=== PATIENT | female | born 1990 | race Asian ===

== ENCOUNTER 2019-01-27 06:28 | Emergency (ER) | payer BC, OTHER ==
[~2019-01-27] VITALS: Ht 170.2 cm; Wt 74.5 kg
[~2019-01-27 06:28] MED LIST: Motrin
[2019-01-27] MEDS ORDERED: dexamethasone 4mg tablet PO ONE (06:50)
[2019-01-27] MEDS ORDERED: triamcinolone acetonide 40mg/ml inj IM ONE (06:50)
[2019-01-27] MEDS ORDERED: ipratropium/albuterol 3ml nebule NEB ONE (06:50)
[2019-01-27 07:37] VITALS: BP 124/81
== END 2019-01-27 07:42 | disposition home or self-care (01) ==
LOC: ER 06:29
DX: J45.901 Unspecified asthma with (acute) exacerbation (principal); F12.90 Cannabis use, unspecified, uncomplicated
CPT/HCPCS: 93005; 94640; 96372; 99283; J3301; 94760

== ENCOUNTER 2020-07-30 19:02 | Emergency (ER) | payer BC ==
[~2020-07-30] VITALS: Ht 170.2 cm; Wt 47.5 kg
[2020-07-30] MEDS ORDERED: albuterol 2.5 MG/3 ML nebule CONTNEB PRN (19:05)
[2020-07-30] MEDS ORDERED: methylPREDNISolone sod succ 125mg/2ml vial IV ONE (19:05)
[2020-07-30] MEDS ORDERED: magnesium 2GM in 50ml NS 50 ML IV ONE ×2 (19:05→20:40)
[2020-07-30] MEDS ORDERED: predniSONE 20 mg tablet PO ONE (19:20)
--- NOTE | 2020-07-30 19:31 | NUR ---
Cont breating tx initiated. RT at bedside.
[2020-07-30] MEDS ORDERED: ipratropium/albuterol 3ml nebule NEB ONE (20:40)
[2020-07-30 21:05] LABS: BASOPHILS % (AUTO) 0.4 % (0-1); EOSINOPHILS # (AUTO) 0.4 X10'3 (0-0.9); EOSINOPHILS % (AUTO) 4.8 % (0-6); HEMATOCRIT 44.2 % (35.0-45.0); HEMOGLOBIN 15.2 g/dl (12.0-16.0); LYMPHOCYTES # (AUTO) 1.2 X10'3 (1.1-4.8); LYMPHOCYTES % (AUTO) 12.7 % (21-51); MEAN CORPUSCULAR HEMOGLOBIN 32.4 PG (27.0-31.0); MEAN CORPUSCULAR HGB CONC 34.4 g/dL (33.0-36.5); MEAN PLATELET VOLUME 8.3 FL (7.4-10.4); MONOCYTES # (AUTO) 0.6 X10'3 (0-0.9); MONOCYTES % (AUTO) 6.6 % (2-12); NEUTROPHILS % (AUTO) 75.5 % (42-75); PLATELET COUNT 211 X10'3 (140-440); RED CELL DISTRIBUTION WIDTH 12.5 % (11.5-14.5); WHITE BLOOD COUNT 9.3 X10'3 (4.5-11.0)
[2020-07-30 21:15] LABS: ALANINE AMINOTRANSFERASE 17 U/L (12-78); ALBUMIN 4.7 G/DL (3.4-5.0); ALBUMIN/GLOBULIN RATIO 1.4 (1.1-1.5); ALKALINE PHOSPHATASE 73 IU/L (46-116); ANION GAP 12 (8-16); ASPARTATE AMINO TRANSFERASE 19 U/L (10-37); BILIRUBIN,TOTAL 0.7 MG/DL (0.1-1.0); BLOOD UREA NITROGEN 13 MG/DL (7-18); BUN/CREATININE RATIO 17.1 (6.6-38.0); CHLORIDE 103 MMOL/L (99-107); CREATININE 0.76 MG/DL (0.40-0.90); GLUCOSE 102 MG/DL (70-104); POTASSIUM 3.6 MMOL/L (3.5-5.1); SODIUM 139 MMOL/L (135-145); TOTAL PROTEIN 8.1 G/DL (6.4-8.2); eGFR > 90 ML/MIN
[2020-07-30 22:04] VITALS: BP 154/69
[2020-07-30] MEDS ORDERED: PRED50TA PO (23:18)
== END 2020-07-30 23:25 | disposition home or self-care (01) ==
LOC: ER 19:02
DX: J45.901 Unspecified asthma with (acute) exacerbation (principal); F12.10 Cannabis abuse, uncomplicated
CPT/HCPCS: 36415; 71045; 80053; 85025; 94640; 96365; 99285; J3475; J7512; 94760; A7015

== ENCOUNTER 2021-03-05 18:38 | Emergency (ER) | payer BC ==
[~2021-03-05] VITALS: Ht 170.2 cm; Wt 80.0 kg
[~2021-03-05 18:38] MED LIST changes: +PRED50TA PO
[2021-03-05] MEDS ORDERED: magnesium 2GM in 50ml NS 50 ML IV ONE (19:00)
[2021-03-05] MEDS ORDERED: predniSONE 20 mg tablet PO ONE ×3 (19:00→21:25)
[2021-03-05] MEDS: albuterol 2.5 MG/3 ML nebule CONTNEB PRN ×3 (19:08→21:54)
--- NOTE | 2021-03-05 20:23 | NUR ---
1 hour cont neb complete. prednisone on board Mag almost finished and patietn reports not improved and is still in tripod position. provider notified
--- NOTE | 2021-03-05 20:31 | NUR ---
verbal order for another 1 hour cont neb. paged RT. also eval for bipap
[2021-03-05 22:18] VITALS: BP 142/62
[2021-03-05] MEDS ORDERED: ALB0.5UD IH (22:49)
[2021-03-05] MEDS ORDERED: PRED20TA PO (22:49)
[2021-03-05] MEDS ORDERED: ALBU8HFA PO (22:49)
[2021-03-16] MEDS ORDERED: BECL7.3A INH (02:51)
[2021-03-16] MEDS ORDERED: PRED20TA PO (02:51)
== END 2021-03-05 22:55 | disposition home or self-care (01) ==
LOC: ER 18:40
DX: J45.901 Unspecified asthma with (acute) exacerbation (principal); F12.90 Cannabis use, unspecified, uncomplicated; Z79.899 Other long term (current) drug therapy
CPT/HCPCS: 71045; 94640; 94644; 96365; 96366; 99285; J3475; J7512; 94760; A7015

== ENCOUNTER 2021-10-27 14:04 | Inpatient (IN) | payer BC ==
[~2021-10-27] VITALS: Ht 170.2 cm; Wt 77.3 kg
[~2021-10-27 14:04] MED LIST changes: +BECL7.3A INH
[2021-10-27] MEDS ORDERED: ipratropium/albuterol 3ml nebule NEB ONE (14:10)
[2021-10-27] MEDS ORDERED: methylPREDNISolone sod succ 125mg/2ml vial IV ONE (14:25)
[2021-10-27] MEDS ORDERED: albuterol 2.5 MG/3 ML nebule CONTNEB PRN ×2 (14:25→17:40)
[2021-10-27] MEDS ORDERED: magnesium 2GM in 50ml NS 50 ML IV ONE (14:25)
[2021-10-27] MEDS ORDERED: epiNEPHrine 1 mg/ml inj IM STA (14:56)
[2021-10-27 14:57] LABS: BASOPHILS % (AUTO) 0.1 % (0-1); EOSINOPHILS % (AUTO) 0.2 % (0-6); HEMATOCRIT 45.7 % (35.0-45.0); HEMOGLOBIN 15.7 g/dl (12.0-16.0); LYMPHOCYTES # (AUTO) 0.5 X10'3 (1.1-4.8); LYMPHOCYTES % (AUTO) 4.1 % (21-51); MEAN CORPUSCULAR HGB CONC 34.3 g/dL (33.0-36.5); MEAN CORPUSCULAR VOLUME 90.3 FL (78-98); MONOCYTES # (AUTO) 0.4 X10'3 (0-0.9); MONOCYTES % (AUTO) 3.2 % (2-12); NEUTROPHILS # (AUTO) 11.2 X10'3 (1.8-7.7); NEUTROPHILS % (AUTO) 92.4 % (42-75); PLATELET COUNT 195 X10'3 (140-440); RED BLOOD COUNT 5.06 X10'6 (4.20-5.60); RED CELL DISTRIBUTION WIDTH 13.3 % (11.5-14.5); WHITE BLOOD COUNT 12.1 X10'3 (4.5-11.0)
[2021-10-27 15:06] LABS: ALANINE AMINOTRANSFERASE 17 U/L (12-78); ALBUMIN 4.8 G/DL (3.4-5.0); ALBUMIN/GLOBULIN RATIO 1.1 (1.1-1.5); ALKALINE PHOSPHATASE 74 IU/L (46-116); ANION GAP 11 (8-16); ASPARTATE AMINO TRANSFERASE 16 U/L (10-37); BILIRUBIN,TOTAL 0.7 MG/DL (0.1-1.0); BLOOD UREA NITROGEN 12 MG/DL (7-18); BUN/CREATININE RATIO 15.4 (6.6-38.0); CALCIUM 9.5 MG/DL (8.5-10.1); CHLORIDE 104 MMOL/L (99-107); CREATININE 0.78 MG/DL (0.40-0.90); GLUCOSE 149 MG/DL (70-104); MAGNESIUM 2.1 MG/DL (1.5-2.4); POTASSIUM 4.1 MMOL/L (3.5-5.1); SODIUM 139 MMOL/L (135-145); TOTAL CARBON DIOXIDE 23.8 MMOL/L (24-32); TOTAL PROTEIN 9.1 G/DL (6.4-8.2); eGFR 88 ML/MIN
[2021-10-27 17:34] LABS: ABG BASE EXCESS -0.6 mmol/L (-2.0-2.0); ABG HCO3 22.9 mmol/L (22.0-26.0); ABG OXYGEN SATURATION 91.2 % (94-97); ABG PCO2 (T) 34.7 mmHg (32.0-45.0); ABG PO2 (T) 58.8 mmHg (75.0-100.0); ALLEN'S TEST POSITIVE; FCOHb 0.6 % (0.0-3.9); FMetHb 0.3 % (0.0-1.5); FO2Hb 90.4 % (94-97); TOTAL HEMOGLOBIN 15.4 G/dl (12.0-16.0)
[2021-10-27] MEDS ORDERED: FLUT1BLS13 INH (17:43)
[2021-10-27] MEDS ORDERED: PRED10TA PO (17:43)
[2021-10-27] MEDS ORDERED: ALBU90AE2 INH (17:48)
--- NOTE | 2021-10-27 17:49 | NUR ---
Patient ambulating around the unit without difficulty. Fiance walking with her.
[2021-10-27] MEDS ORDERED: magnesium hydroxide 30ml (MOM) UD suspension PO PRN (19:20)
[2021-10-27] MEDS ORDERED: normal saline 1000ml 1,000 ML IV SCH (19:20)
[2021-10-27] MEDS ORDERED: acetaminophen 325mg tablet PO PRN ×2 (19:20)
[2021-10-27] MEDS ORDERED: POTASSIUM BICARB 20meq eff tab 20 MEQ TABLET.EFF PO PRN ×2 (19:20)
[2021-10-27] MEDS ORDERED: potassium CL 10mEq/100ml bag 100 ML IV PRN (19:20)
[2021-10-27] MEDS ORDERED: acetaminophen 650mg rectal suppository RC PRN (19:20)
[2021-10-27] MEDS ORDERED: levoFLOXACIN-Levaquin 750MG/D5 150 ML IV SCH (19:20)
[2021-10-27] MEDS ORDERED: morphine 2 MG/ML inj. syringe IV PRN ×2 (19:20)
[2021-10-27] MEDS ORDERED: albuterol 2.5 MG/3 ML nebule NEB PRN (19:20)
[2021-10-27] MEDS ORDERED: diphenhydrAMINE 25mg capsule PO PRN (19:20)
[2021-10-27] MEDS ORDERED: bisacodyl 10mg suppository rectal RC PRN (19:20)
[2021-10-27] MEDS ORDERED: HYDROcodone/acetaminophen 5mg/325mg tablet PO PRN (19:20)
[2021-10-27] MEDS ORDERED: HYDROcodone/acetaminophen 10/325mg tab PO PRN (19:20)
[2021-10-27] MEDS ORDERED: mag hydrox/Alum hydrox/simeth 30ml oral suspension PO PRN (19:20)
[2021-10-27] MEDS ORDERED: magnesium Cl slow-release 64mg tablet PO PRN (19:20)
[2021-10-27] MEDS ORDERED: magnesium 4gm in 100ml NS 100 ML IV PRN (19:20)
[2021-10-27] MEDS ORDERED: ondansetron/PF 4mg/2ml inj IV PRN (19:20)
[2021-10-27] MEDS ORDERED: ipratropium/albuterol 3ml nebule NEB PRN (19:20)
[2021-10-27] MEDS ORDERED: magnesium 2GM in 50ml NS 50 ML IV PRN (19:20)
[2021-10-27] MEDS ORDERED: K and/or MAG REPLACEMENT MC SCH (20:00)
[2021-10-27] MEDS ORDERED: methylPREDNISolone sod succ 125mg/2ml vial IV SCH (20:00)
[2021-10-27] MEDS ORDERED: docusate sod 100mg capsule PO SCH (20:00)
[2021-10-27 20:33] LABS: CLARITY,URINE CLEAR (Clear); COLOR,URINE YELLOW (Yellow); GLUCOSE, URINE NEGATIVE (Neg); KETONES,URINE 15 mg/dl (Neg); LEUKOCYTE ESTERASE ,URINE NEGATIVE (Neg); OCCULT BLOOD,URINE TRACE-INTACT (Neg); PROTEIN,URINE 100 mg/dl (Neg); UROBILINOGEN,URINE 0.2 E.U/dL (0.2-1.0)
[2021-10-27 20:38] LABS: NITRITES, URINE NEGATIVE (Neg); UA COLLECTION TYPE CLN CATCH MIDSTREAM
--- NOTE | 2021-10-27 20:38 | NUR ---
contacted hospitalist Clair in regards to patients concerns over admission. patient states she was admitted prior to re-evaluation by ED physician or evaluation by hospitalist. patient requested to speak with hospitalist. Patient was notified that hospitalist was unable discharge patient this evening and would come to speak with patient later on this evening. patient notified that she could sign out against medical advice if necessary. explained treatment plan and orders that were placed in EHR for patient. patient agrees with treatment plan at this time and will speak with night hospitalist when she is available later today.
[2021-10-27 20:39] LABS: WBC,URINE NONE SEEN /HPF (0-4)
[2021-10-27 20:40] LABS: AMORPHOUS URATES 2+; BACTERIA,URINE FEW /HPF (Neg); RBC,URINE 0-2 /HPF (0-2); SQUAMOUS EPITHELIAL CELL,UR MANY /LPF (FEW)
[2021-10-27] MEDS ORDERED: albuterol 2.5 MG/3 ML nebule NEB SCH (21:00)
[2021-10-27 21:01] LABS: HCG SERUM QL NEGATIVE
[2021-10-27] MEDS ORDERED: ipratropium/albuterol 3ml nebule NEB SCH (23:00)
--- NOTE | 2021-10-27 23:14 | NUR ---
patient has decided to sign out against medical advice. risks and benefits of recommended treatment has been explained to patient by primary nurse. patient has signed the AMA form. notified hospitalist Clair who is present in ED in regards to patient leaving AMA. Hospitalist states she will notify admitting physician in the AM. Notified charge nurse. vital signs stable. patient able to ambulate with a steady gait without assistance. no signs of respiratory distress. patient advised to follow up with primary care physician next available appt. advised to return to ED if symptoms worsen.
[2021-10-27 23:19] VITALS: BP 139/70
[2021-10-28] MEDS ORDERED: enoxaparin 40mg/0.4ml syringe SUBCUT SCH (08:00)
[2021-10-28] MEDS ORDERED: budesonide 0.5mg/2ml UD nebule IH SCH (09:00)
== END 2021-10-27 23:55 | disposition left against medical advice (07) | DRG 203 ==
LOC: ER 14:04 → ED HOLD 19:26
PROVIDERS: ADMIT Family Medicine; ATTEND Family Medicine
DX: J45.901 Unspecified asthma with (acute) exacerbation (principal); R09.02 Hypoxemia; Z53.29 Procedure and treatment not carried out because of patient's decision for other reasons; F12.90 Cannabis use, unspecified, uncomplicated
CPT/HCPCS: 36415; 36600; 71045; 80053; 81001; 82803; 83036; 83735; 84703; 85018; 85025; 94640; 94760; 99285; A7015; G0378; J0171; J1956; J2930; J3475; J7030